=== PATIENT | female | born 1995 | race American Indian/Alaskan Native ===

== ENCOUNTER 2017-01-21 05:54 | Inpatient (IN) | payer MEDICAID ==
--- NOTE | 2017-01-21 08:33 | History and Physical Report ---
History of Present Illness Date of examination: 01/21/17 Date of admission: 01/21/17 08:19 Chief complaint: Labor History of present illness: Pt is a 21yo BF EDC 01/24/17; EGA 39 4/7 weeks presents to L&D complaining of RUC's q 3-4 mins. She received care at [facility] since 24 weeks and course has been unremarkable. records are available and GBS is Negative. Past History Past Medical History: no pertinent history Past Surgical History: no surgical history Social history: no significant social history, single - Obstetrical History Expected Date of Delivery: 01/24/17 Actual Gestation: 39 Week(s) 4 Day(s) : 1 Medications and Allergies Allergies Allergy/AdvReac Type Severity Reaction Status Date / Time No Known Allergies Allergy Verified 01/21/17 08:39 Active Meds: Active Medications Butorphanol Tartrate (Stadol) 2 mg IV Q2H PRN PRN Reason: Pain , Severe (7-10) Ephedrine Sulfate (Ephedrine Sulfate) 10 mg IV Q2M PRN PRN Reason: Hypotension Stop: 01/21/17 08:32 Fentanyl (Sublimaze) 100 mcg IV Q2H PRN PRN Reason: Labor Pain Ampicillin Sodium (Polycillin/Ns 1 Gm/50 Ml) 1 gm in 50 mls @ 100 mls/hr IV Q4HR ALON PRN Reason: Protocol Ampicillin Sodium (Polycillin/Ns 2 Gm/100 Ml) 2 gm in 100 mls @ 100 mls/hr IV ONCE ONE PRN Reason: Protocol Stop: 01/21/17 09:26 Review of Systems All systems: negative - Vital Signs Vital signs: Vital Signs Pulse Pulse Ox 97 H 91 01/21/17 06:11 01/21/17 06:11 Temp Pulse Resp BP Pulse Ox 97.5 F L 94 H 18 108/72 96 01/21/17 06:32 01/21/17 08:06 01/21/17 06:32 01/21/17 06:16 01/21/17 08:06 - Physical Exam Breasts: Positive: deferred Cardiovascular: Regular rate Lungs: Positive: Clear to auscultation Abdomen: Positive: normal appearance Genitourinary (Female): Positive: normal external genitalia Uterus: Positive: enlarged Extremities: Positive: normal - Obstetrical FHR: category 1 Uterine Contraction Monitor Mode: External Cervical Dilatation: 4 Cervical Effacement Percentage: 70 station: -2 Uterine Contraction Pattern: Regular Uterine Tone Measurement Phase: Contraction Uterine Contraction Intensity: Moderate Results Result Diagrams: 01/21/17 08:35 All other labs normal. Assessment and Plan - Patient Problems (1) 39 weeks gestation of Onset Date: 01/21/17 Current Visit: Yes Status: Acute Plan to address problem: A: IUP @ 39 4/7 weeks in labor P: Admit to L&D for expectant vaginal delivery
[2017-01-21] MEDS ORDERED: POLYCILLIN/NS 2 GM/100 ML 2 GM/100 ML BAG IV ONE (09:00)
[2017-01-21] MEDS ORDERED: ZOFRAN IV PRN ×2 (09:00→19:27)
[2017-01-21] MEDS ORDERED: STADOL IV PRN (09:00)
[2017-01-21] MEDS ORDERED: PITOCin/NS 20 UNIT/1000ML DRIP 20 UNITS/1,000 ML BAG IV SCH ×2 (09:00→20:00)
[2017-01-21] MEDS ORDERED: MINERAL OIL PO PRN (09:00)
[2017-01-21] MEDS ORDERED: XYLOCAINE 2% INFILTRATI ONE ×2 (09:00→19:00)
[2017-01-21] MEDS ORDERED: PITOCin/NS 30 UNIT/500ML 30 UNITS/500 ML BAG IV SCH ×2 (09:00)
[2017-01-21] MEDS ORDERED: LACTATED RINGERS 1,000 ML IV SCH (09:00)
[2017-01-21] MEDS ORDERED: ePHEDrine SULFATE IV PRN (09:00)
[2017-01-21 09:07] LABS: Hematocrit 34.8 % (30.3-42.9); Hemoglobin 11.9 gm/dl (10.1-14.3); Mean Corpuscular HGB Conc 34 % (30-34); Mean Corpuscular Hemoglobin 30 pg (28-32); Mean Corpuscular Volume 88 fl (79-97); Platelet Count 215 K/mm3 (140-440); Red Blood Count 3.96 M/mm3 (3.65-5.03); Red Cell Distribution Width 14.6 % (13.2-15.2); White Blood Count 6.9 K/mm3 (4.5-11.0)
[2017-01-21] MEDS ORDERED: BRETHINE SUB-Q PRN (09:30)
[2017-01-21] MEDS ORDERED: BRETHINE IVP PRN (10:00)
[2017-01-21] MEDS: SUBLIMAZE IV PRN ×2 (12:56→16:26)
[2017-01-21] MEDS ORDERED: POLYCILLIN/NS 1 GM/50 ML 1 GM/50 ML BAG IV SCH (13:00)
--- NOTE | 2017-01-21 19:25 | Procedure Note ---
OB Delivery Note - Delivery Date of Delivery: 01/21/17 Surgeon: MARCUS MAXWELL Estimated blood loss: 200cc - Vaginal Delivery presentation: vertex Delivery position: OA Intrapartum events: none Delivery induction: none Delivery augmentation: rupture of membranes Delivery monitor: external FHT, external uterine Route of delivery: Delivery placenta: spontaneous Delivery cord: nuchal cord (x1), 3 umbilical vessels Episiotomy: none Delivery laceration: 2nd degree (perineal) Delivery repair: vicryl Anesthesia: local Delivery comments: Infant delivered on perineum and nuchal cord x 1 easily reduced, followed by delivery of the body. placed on Mom's chest for [id number] bonding and delayed cord clamping. - A at 1 minute: 8 at 5 minutes: 9 Infant Gender: Female (3360gms)
[2017-01-21] MEDS ORDERED: DULCOLAX PR PRN (19:27)
[2017-01-21] MEDS ORDERED: BENADRYL PO PRN (19:27)
[2017-01-21] MEDS ORDERED: PHENERGAN PO PRN (19:27)
[2017-01-21] MEDS ORDERED: TUCKS PAD TP PRN (19:27)
[2017-01-21] MEDS ORDERED: TYLENOL PO PRN (19:27)
[2017-01-21] MEDS ORDERED: PHENERGAN PR PRN (19:27)
[2017-01-21] MEDS ORDERED: LANSINOH TP PRN (19:27)
[2017-01-21] MEDS ORDERED: MILK OF MAGNESIA PO PRN (19:27)
[2017-01-21] MEDS ORDERED: SODIUM CHLORIDE FLUSH SYRINGE 10 ML IV NR (20:00)
[2017-01-21] MEDS: NORCO 5/325 PO PRN (21:54)
[2017-01-21] MEDS: MOTRIN PO SCH (21:54)
[2017-01-21] MEDS: FEOSOL PO SCH (22:00)
[2017-01-21] MEDS: COLACE PO SCH (22:00)
[2017-01-22] MEDS: MOTRIN PO SCH ×2 (04:10→17:03)
[2017-01-22] MEDS: NORCO 5/325 PO PRN (04:10)
[2017-01-22 06:45] LABS: Hematocrit 27.6 % (30.3-42.9); Hemoglobin 9.3 gm/dl (10.1-14.3)
--- NOTE | 2017-01-22 08:23 | Progress Note ---
Assessment and Plan - Patient Problems (1) 39 weeks gestation of Onset Date: 01/21/17 Current Visit: Yes Status: Resolved (2) (normal spontaneous vaginal delivery) Onset Date: 01/22/17 Current Visit: Yes Status: Resolved Plan to address problem: A: S/P - PPD #1 Doing well Asymptomatic anemia - stable P: May go home tomorrow. Subjective - Subjective Date of service: 01/22/17 Principal diagnosis: s/p - PPD #1 Interval history: Pt is feeling well without complaints. Bleeding improved. Patient reports: appetite normal, voiding normally, pain well controlled, flatus , ambulating normally [place]: doing well, nursing well Objective - Vital Signs Latest vital signs: Vital Signs Temp Pulse Resp BP BP 01/22/17 04:15 98.4 F 67 18 127/73 01/22/17 00:00 98.2 F 76 18 136/62 01/21/17 20:09 96 H 121/74 01/21/17 19:58 100 H 112/72 01/21/17 19:43 106 H 106/68 01/21/17 19:28 104 H 120/77 01/21/17 19:13 108 H 125/74 01/21/17 17:25 97.6 F 88 16 138/77 01/21/17 17:23 88 138/77 01/21/17 16:23 90 122/73 01/21/17 15:51 99.0 F 01/21/17 15:23 89 124/76 01/21/17 14:22 90 121/75 01/21/17 13:22 90 99/57 01/21/17 12:22 77 113/71 01/21/17 12:08 79 113/74 01/21/17 12:05 79 14 113/74 01/21/17 10:22 90 123/73 Intake and Output 01/21/17 01/22/17 01/22/17 22:59 06:59 14:59 Intake Total 240 Output Total 800 500 Balance -560 -500 Intake: Oral 240 Output: Urine 800 500 Void 800 500 Other: Total, Intake Amount 240 Total, Output Amount 800 500 # Voids Void 1 1 - Exam Breasts: Present: deferred Cardiovascular: Present: Regular rate Lungs: Present: Clear to auscultation Abdomen: Present: normal appearance, soft Uterus: Present: normal, firm, fundal height below umbilicus Extremities: Present: normal - Labs Labs: Abnormal lab results 01/22/17 Range/Units 06:23 Hgb 9.3 L (10.1-14.3) gm/dl Hct 27.6 L D (30.3-42.9) % Laboratory Tests 01/21/17 01/21/17 01/21/17 08:35 08:35 08:35 WBC 6.9 RBC 3.96 Hgb 11.9 Hct 34.8 MCV 88 MCH 30 MCHC 34 RDW 14.6 Plt Count 215 RPR Nonreactive Hep Bs Antigen Blood Type O POSITIVE Antibody Screen Negative 01/21/17 01/22/17 21:17 06:23 WBC RBC Hgb 9.3 L Hct 27.6 L D MCV MCH MCHC RDW Plt Count RPR Hep Bs Antigen Non-reactive Blood Type Antibody Screen
--- NOTE | 2017-01-22 13:54 | Discharge Summary ---
Providers - Providers Date of Admission: 01/21/17 08:19 Date of discharge: 01/23/17 Attending physician: MARCUS MAXWELL Primary care physician: MARCUS MAXWELL Hospitalization Reason for admission: active labor, IUP at term Delivery: Episiotomy: none Laceration: 2nd degree (perineal) Other procedures: none complications: none Discharge diagnosis: IUP at term delivered [place] baby: female Hospital course: Unremarkable. Condition at discharge: Good Disposition: DC-01 TO HOME OR SELFCARE - Discharge Diagnoses (1) 39 weeks gestation of Status: Resolved (2) (normal spontaneous vaginal delivery) Status: Resolved Plan - Discharge Medications Prescriptions: Ferrous Sulfate [Feosol 325 MG tab] 325 mg PO BID #60 tablet HYDROcodone/APAP 5-325 [Bells 5/325] 1 each PO Q6HR PRN #10 tablet PRN Reason: Pain Ibuprofen [Motrin] 600 mg PO Q8H PRN #30 tablet PRN Reason: Pain Vit Calc,Iron,Folic [ Vitamins] 1 each PO DAILY #30 tablet - Provider Discharge Summary Activity: routine, no sex for 6 weeks, no heavy lifting 4 weeks, no strenuous exercise Diet: routine Instructions: routine Additional instructions: [] Smoking cessation referral if applicable(refer to patient education folder for contact #) [] Refer to [facility] Booklet Call your doctor immediately for: * Fever > 100.5 * Heavy vaginal bleeding ( >1 pad per hour) * Severe persistent headache * Shortness of breath * Reddened, hot, painful area to leg or breast * Drainage or odor from incision. * Keep incision clean and dry at all times and follow doctor's instructions regarding bathing/showering - Follow up plan Follow up: MARCUS MAXWELL MD [Primary Care Provider] - 6 Weeks
[2017-01-22] MEDS: PRENATAL VITAMIN PO SCH (17:02)
[2017-01-22 18:37] LABS: Hemoglobin 9.1 gm/dl (10.1-14.3)
[2017-01-22] MEDS ORDERED: BOOSTRIX IM ONE (19:27)
[2017-01-22] MEDS ORDERED: M-M-R II VACCINE SUB-Q ONE (19:27)
[2017-01-23] MEDS: MOTRIN PO SCH ×2 (00:18→12:55)
[2017-01-23] MEDS: FEOSOL PO SCH ×2 (05:30→12:55)
[2017-01-23] MEDS: NORCO 5/325 PO PRN (05:30)
[2017-01-23] MEDS: COLACE PO SCH (12:55)
[2017-01-23] MEDS: PRENATAL VITAMIN PO SCH (12:55)
[2017-01-23 13:08] VITALS: BP 115/64
== END 2017-01-23 14:00 | disposition home or self-care (01) | DRG 775 ==
LOC: TRG 05:54 → LD 08:19 → OB 21:05
PROVIDERS: ADMIT Obstetrics & Gynecology; ATTEND Obstetrics & Gynecology
PROC: 10E0XZZ Delivery of Products of Conception, External Approach (ICD-10-PCS; principal; 2017-01-21)
PROC: 0KQM0ZZ Repair Perineum Muscle, Open Approach (ICD-10-PCS; 2017-01-21)
PROC: 3E0234Z Introduction of Serum, Toxoid and Vaccine into Muscle, Percutaneous Approach (ICD-10-PCS; 2017-01-21)
DX: O69.81X0 Labor and delivery complicated by cord around neck, without compression, not applicable or unspecified (principal); Z3A.39 39 weeks gestation of pregnancy; Z37.0 Single live birth; D64.9 Anemia, unspecified; O70.1 Second degree perineal laceration during delivery; Z23 Encounter for immunization; O90.81 Anemia of the puerperium
CPT/HCPCS: 36415; 85014; 85018; 85027; 86592; 86706; 86765; 86850; 86900; 86901; 99211; A6250; G0463; J2590; J3010; J7120